=== PATIENT | female | born 1965 | race African-American/Black ===

== ENCOUNTER 2023-11-05 09:00 | Outpatient (RCR) | payer OTHER, SELFPAY | END 2023-12-26 08:07 | disposition home or self-care (01) | LOC: HO.PT 09:00 | PROVIDERS: PCP Internal Medicine Gastroenterology; Visit Provider Internal Medicine Gastroenterology | DX: K59.01 Slow transit constipation (principal) | CPT/HCPCS: 97110; 97112; 97140; 97162 ==